=== PATIENT | male | born 1945 | race Caucasian/White ===

== ENCOUNTER → 2020-12-13 11:36 | Outpatient (BNVA) | payer MEDICARE, SELFPAY | PROVIDERS: PCP Family Medicine; Visit Provider Internal Medicine | DX: J44.9 Chronic obstructive pulmonary disease, unspecified (principal); Z87.891 Personal history of nicotine dependence | CPT/HCPCS: 99202 ==

== ENCOUNTER 2020-12-29 07:58 | Outpatient (REF) | payer MEDICARE, SELFPAY ==
--- NOTE | 2020-12-29 14:25 | PFT_ITS ---
Forced vital capacity is slightly increased. FEV1 is normal. FEV1 over FVC ratio is moderately decreased. [id number] is markedly decreased. Bronchodilator challenge was not given because the patient had used his regular bronchodilator inhaler 2 hours before the test. Total lung capacity and residual volume are normal. Diffusion capacity is markedly decreased. CONCLUSION: These findings are consistent with moderately severe obstructive airway disorder. No evidence of air trapping. Clinical correlation is recommended. MD TOSHA Merrill/PETER / [phone]
== END 2020-12-29 07:59 | disposition home or self-care (01) ==
LOC: HO.RESP 07:58
PROVIDERS: PCP Family Medicine; Visit Provider Internal Medicine
DX: J44.9 Chronic obstructive pulmonary disease, unspecified (principal); Z87.891 Personal history of nicotine dependence
CPT/HCPCS: 94010; 94727; 94729

== ENCOUNTER → 2021-01-31 10:06 | Outpatient (BNVA) | payer MEDICARE, SELFPAY | PROVIDERS: PCP Family Medicine; Visit Provider Internal Medicine | DX: J44.9 Chronic obstructive pulmonary disease, unspecified (principal); Z87.891 Personal history of nicotine dependence | CPT/HCPCS: 99212 ==

== ENCOUNTER → 2021-08-03 13:36 | Outpatient (BNVA) | payer MEDICARE, SELFPAY | PROVIDERS: PCP Family Medicine; Visit Provider Internal Medicine | DX: J44.9 Chronic obstructive pulmonary disease, unspecified (principal); Z87.891 Personal history of nicotine dependence | CPT/HCPCS: 99212 ==

== ENCOUNTER → 2022-02-01 11:04 | Outpatient (BNVA) | payer MEDICARE, SELFPAY | PROVIDERS: PCP Family Medicine; Visit Provider Internal Medicine | DX: J44.9 Chronic obstructive pulmonary disease, unspecified (principal); F17.210 Nicotine dependence, cigarettes, uncomplicated | CPT/HCPCS: 99212 ==

== ENCOUNTER → 2022-07-02 14:48 | Outpatient (BNVA) | payer MEDICARE, SELFPAY | PROVIDERS: PCP Family Medicine; Visit Provider Internal Medicine | DX: J44.9 Chronic obstructive pulmonary disease, unspecified (principal); U09.9 Post COVID-19 condition, unspecified; Z79.899 Other long term (current) drug therapy; Z87.891 Personal history of nicotine dependence | CPT/HCPCS: 99212 ==